=== PATIENT | female | born 1995 | race Caucasian/White ===

== ENCOUNTER 2020-07-05 06:15 | Emergency (ER) | payer OTHER ==
[~2020-07-05] VITALS: Ht 165.1 cm; Wt 92.1 kg
[2020-07-05 06:18] VITALS: BP 110/76
--- NOTE | 2020-07-05 06:24 | NUR ---
AMBULATED TO ER BED 4
--- NOTE | 2020-07-05 06:39 | NUR ---
PT PRESENTS TO THE ED WITH C/O WORSENING LEFT BREAST LUMP/ABSCESS. PT REPORTS THE LUMP IS GETTING BIGGER WITH INCREASED PAIN. PT DENIES ANY DISCHARGE . PT REPORTS HAVING BIOPSY DONE ON 07/03 PENDING RESULTS AND WAS PRESCRIBED DICLOXACILLIN 500MG QID FOR 10 DAYS. MD MADE AWARE OF PATIENT'S STATUS.
--- NOTE | 2020-07-05 06:43 | NUR ---
Female Ore Dressing Engineer accompanied female patient for breast exam performed by Dr. Delgado.
[2020-07-05 06:55] LABS: BASOPHILS % (AUTO) 0.3 % (0.0-2.0); EOSINOPHILS # (AUTO) 0.1 K/uL (0-0.4); HEMATOCRIT 36.9 % (36-48); HEMOGLOBIN 12.3 g/dL (12.0-16.0); LYMPHOCYTES # (AUTO) 2.4 K/uL (2.5-16.5); LYMPHOCYTES % (AUTO) 26.8 % (20.5-51.1); MEAN CORPUSCULAR HEMOGLOBIN 28 pg (27-31); MEAN CORPUSCULAR HGB CONC 34 g/dL (33-37); MEAN CORPUSCULAR VOLUME 84.1 fL (80-94); MONOCYTES # (AUTO) 0.5 K/uL (0.8-1.0); NEUTROPHILS % (AUTO) 65.9 % (42.2-75.2); PLATELET COUNT (AUTO) 389 K/uL (140-450); RED BLOOD CELL COUNT(AUTO) 4.39 MIL/uL (4.20-5.40); RED CELL DISTRIBUTION WIDTH 12.7 % (11.6-13.7); WHITE BLOOD COUNT (AUTO) 9.1 K/uL (4.8-10.8)
--- NOTE | 2020-07-05 07:10 | NUR ---
REPORT RECEIVED FROM MATTHEW STRICKLAND, TRANSFER OF CARE AT THIS TIME
[2020-07-05 07:15] LABS: ANION GAP 16.1 (8-16); CREATININE 0.5 mg/dL (0.6-1.3); POTASSIUM 4.1 mmol/L (3.5-5.1)
[2020-07-05] MEDS ORDERED: PIPERACILLIN/TAZOBACTAM 3.375 GM in DEXTROSE 5% 50 ML IV ONE (08:00)
--- NOTE | 2020-07-05 08:06 | NUR ---
mindi swab sent to lab
[2020-07-05] MEDS ORDERED: PIPERACILLIN/TAZOBACTAM 3.375 GM VIAL IV ONE (08:13)
--- NOTE | 2020-07-05 10:30 | NUR ---
PT ALERT AND AWAKE, BREATHING EVEN AND UNLABORED
--- NOTE | 2020-07-05 12:30 | NUR ---
PT ALERT AND AWAKE, BREATHING EVEN AND UNLABORED
--- NOTE | 2020-07-05 14:45 | NUR ---
PT TAKEN BY SURGERY TEAM
[2020-07-05 14:54] VITALS: BP 130/70
[2020-07-05] MEDS ORDERED: BUPIVACAINE-MPF 0.25% 30 ML VIAL INJ ONE (16:01)
[2020-07-05] MEDS ORDERED: MIDAZOLAM 2 MG/2 ML VIAL ONE (16:15)
[2020-07-05] MEDS ORDERED: DEXAMETHASONE 4 MG/ML VIAL ONE (16:15)
[2020-07-05] MEDS ORDERED: ONDANSETRON 4 MG/2 ML VIAL ONE (16:15)
[2020-07-05] MEDS ORDERED: PROPOFOL 200 MG/20 ML VIAL IV ONE (16:15)
[2020-07-05] MEDS ORDERED: KETOROLAC 30 MG/ML VIAL ONE (16:15)
[2020-07-05] MEDS ORDERED: SEVOFLURANE 250 ML BTL INH ONE (16:15)
[2020-07-05] MEDS ORDERED: fentaNYL citrate 0.05 MG/ML VIAL ONE (16:15)
[2020-07-05] MEDS ORDERED: MEPERIDINE 25 MG/ML SYR IVP PRN (16:55)
[2020-07-05] MEDS ORDERED: diphenhydrAMINE 50 MG/ML VIAL IVP PRN (16:55)
[2020-07-05] MEDS ORDERED: LACTATED RINGERS 1,000 ML IV SCH (16:55)
[2020-07-05] MEDS ORDERED: ONDANSETRON 4 MG/2 ML VIAL IVP PRN (16:55)
[2020-07-05] MEDS ORDERED: HYDROmorphone 1 MG/ML AMP IVP PRN ×2 (16:55→17:00)
[2020-07-05] MEDS ORDERED: MORPHINE SULFATE 2 MG/ML SYR IVP PRN (17:00)
[2020-07-05] MEDS ORDERED: MORPHINE SULFATE 4 MG/ML SYR IV PRN (17:00)
[2020-07-05] MEDS ORDERED: ONDANSETRON 4 MG/2 ML VIAL IV PRN (17:00)
[2020-07-05] MEDS ORDERED: HYDROcodone/APAP 5/325 MG 1 TAB TAB PO PRN (17:00)
[2020-07-05] MEDS: HYDROmorphone PFS 2 MG/ML SYR ONE ×4 (17:15→17:45)
== END 2020-07-05 14:54 | disposition admitted as inpatient to this hospital (09) ==
LOC: MED 06:15
DX: N61.1 Abscess of the breast and nipple (principal); Z20.828 Contact with and (suspected) exposure to other viral communicable diseases
CPT/HCPCS: 10140; 36415; 76641; 80048; 84703; 85025; 85651; 86140; 87070; 87075; 87205; 87426; 88305; 96365; 99284; J1100; J1170; J1885; J2250; J2405; J2543; J2704; J3010; J3490